=== PATIENT | female | born 1985 | race Caucasian/White ===

== ENCOUNTER 2020-11-23 16:04 | Emergency (ER) | payer OTHER ==
[2020-11-23] MEDS ORDERED: CYCLOBENZAPRINE10 MG PO (17:52)
== END 2020-11-23 18:15 | disposition home or self-care (01) ==
LOC: ER1 16:04
DX: S16.1XXA Strain of muscle, fascia and tendon at neck level, initial encounter (principal); S50.02XA Contusion of left elbow, initial encounter; V49.40XA Driver injured in collision with unspecified motor vehicles in traffic accident, initial encounter; Y92.410 Unspecified street and highway as the place of occurrence of the external cause
CPT/HCPCS: 72040; 73080; 99283